=== PATIENT | female | born 1980 | race Caucasian/White ===

== ENCOUNTER 2018-03-13 13:22 | Outpatient (CLI) | payer OTHER ==
--- NOTE | 2018-03-13 15:59 | MRI ---
RIGHT ANKLE MRI WITHOUT IV CONTRAST: Date: 03/13/18 HISTORY: 37-year-old female with history of [id number] sprain of left ankle, slipped and fell several weeks ago with ankle pain. COMPARISON: Left ankle 3 views dated 01/03/18, left ankle MRI dated 07/05/17. FINDINGS: There is placement of plate and screws stabilizing the anterior talonavicular joint, as well as the l ateral calcaneal cuboid joint and the anterior subtalar joint. There is extensive artifact from the e xtensive metal hardware which certainly lowers the sensitivity of this study. There is a small focus of abnormal marrow signal involving the anterior lateral tibial metadiaphysis, having appearance cert ainly concerning for a small stress fracture with some minimal adjacent marrow edema. No overt talar dome osteochondral lesion. The Achilles tendon and plantar fascia are unremarkable. Medial and latera l ankle collateral ligament complexes appear intact, as do the flexor, extensor, and peroneus tendons . Sinus tarsi and spring ligament regions appear unremarkable, although spring ligament is considerab ly obscured. IMPRESSION: Postoperative fusion changes as above. Small focus of abnormal marrow signal involving the lateral as pect of the anterior tibia metadiaphysis. This is consistent with a small stress fracture with some m inimal adjacent abnormal marrow edema. No evidence for other significant acute process. POS: [facility]
== END 2018-03-13 13:23 | disposition home or self-care (01) ==
LOC: SCSMRI 13:22
PROVIDERS: ATTEND Family Medicine
DX: S93.402D Sprain of unspecified ligament of left ankle, subsequent encounter (principal)

== ENCOUNTER 2018-04-09 19:18 | Emergency (ER) | payer MEDICARE, OTHER ==
[2018-04-09] MEDS ORDERED: Morphine 4 MG/ML VIAL ONE ×2 (19:46→21:42)
[2018-04-09 19:47] LABS: #Eosinphils 0.1 thou/uL (0.0-0.7); #Lymphocytes 2.2 thou/uL (1.20-3.40); #Monocytes 0.3 thou/uL (0.11-0.59); #Neutrophils 3.5 thou/uL (1.40-6.50); %Basophils 0.2 % (0.0-1.0); %Eosinophils 0.9 % (0.0-10.0); %Monocytes 5.6 % (0.0-10.0); %Neutrophils 57.3 % (42.0-75.0); Hemoglobin 13.3 g/dL (12.0-16.0); Mean Corpuscular HGB CONC 31.8 g/dL (32.0-36.0); Mean Corpuscular Hemoglobin 24.3 pg (27.0-31.0); Mean Corpuscular Volume 76.6 fL (78.0-98.0); Mean Platelet Volume 9.5 fL (7.4-10.4); Platelet Count 300 thou/uL (130-400); RBC Distribution Width 15.1 % (11.5-14.5); Red Blood Cell (RBC) Count 5.49 mill/uL (4.20-5.40)
[2018-04-09] MEDS ORDERED: Promethazine HCl 25 MG/ML VIAL ONE (19:47)
[2018-04-09 19:50] LABS: BHCG - Serum Negative (NEGATIVE); Pregs Control Background? CLEAR/WHITE (CLR/WHITE); Pregs Control Bar Appear? YES (CONTROL BAR)
[2018-04-09 20:08] LABS: ALT (SGPT) 9 U/L (8-55); AST (SGOT) 11 U/L (5-34); Albumin 4.5 g/dL (3.5-5.0); Alkaline Phosphatase 135 U/L (40-150); Anion Gap 15 mmol/L (10-20); BUN (Urea Nitrogen) 5 mg/dL (7.0-18.7); Bilirubin, Total 0.4 mg/dL (0.2-1.2); Calc. Creatinine Clearance 0 mL/min (70-130); Calcium 9.8 mg/dL (7.8-10.44); Carbon Dioxide 21 mmol/L (22-29); Chloride 105 mmol/L (98-107); Estimated GFR-MDRD 68; Glucose 104 mg/dL (70-105); Lipase 34 U/L (8-78); Potassium 4.1 mmol/L (3.5-5.1); Protein, Total 8.5 g/dL (6.0-8.3); Sodium 137 mmol/L (136-145)
--- NOTE | 2018-04-09 20:24 | CT ---
CT ABDOMEN AND PELVIS WITHOUT CONTRAST: HISTORY: Sudden onset of abdominal pain that began yesterday. Today it has moved to the right lower quadrant of the abdomen. COMPARISON: 10/22/2016 TECHNIQUE: Multiple contiguous axial images were obtained in a CT of the abdomen and pelvis without contrast. C oronal reformats were performed. FINDINGS: The patient is status post cholecystectomy. The liver, kidneys, adrenal glands, spleen, and pancreas are unremarkable, although evaluation is limited without IV contrast. No free air, free fluid, or s tranding changes are seen in the abdomen or pelvis. The large and small bowel are unremarkable. The appendix is unremarkable. No abdominal or pelvic lymphadenopathy is seen. The reproductive organs are unremarkable. The patient has a left hip prosthesis. The visualized inferior thorax and abdominal wall soft tissue s are unremarkable. IMPRESSION: No evidence of acute intraabdominal/pelvic abnormality. POS: [facility]
[2018-04-09] MEDS ORDERED: Ketorolac Tromethamine 30 MG/ML VIAL ONE (21:10)
[2018-04-09 21:19] LABS: Bilirubin Negative (Negative); Blood, Urine Negative (Negative); Clarity CLOUDY (Clear); Glucose, Urine (Dipstick) Negative (Negative); Leukocyte Trace (Negative); Nitrite Negative (Negative); Protein, Urine (Dipstick) Negative (Neg-Trace); Specific Gravity, Urine 1.004 (1.002-1.036); Urobilinogen 0.2 mg/dL (0.2-1.0)
[2018-04-09 21:22] LABS: Bacteria/HPF None Seen HPF (None Seen); Hyaline Casts/LPF 7-10 HYALINE CAST LPF (0-3 Hyaline); Pathc Cast-AUWi Flag 1.01 (0-2.49)
--- NOTE | 2018-04-09 23:28 | ULT ---
PELVIC ULTRASOUND: HISTORY: Right lower quadrant abdominal/pelvic pain. Evaluate for ovarian torsion. COMPARISON: None. TECHNIQUE: Multiplanar chin-scale and color Doppler images were obtained in transabdominal and transvaginal pelv ic ultrasound. Spectral analysis of the Doppler waveforms of the ovaries was performed. FINDINGS: The uterus is normal in size and appearance without focal abnormality. The endometrial stripe is nor mal in thickness, measuring 4 mm. No free fluid is seen in the pelvis. Both ovaries are normal in size and appearance without focal le sions and demonstrate normal internal flow. IMPRESSION: Unremarkable pelvic ultrasound. POS: [facility]
--- NOTE | 2018-04-13 20:10 | EKG ---
Test Reason : Blood Pressure : / mmHG Vent. Rate : 123 BPM Atrial Rate : 123 BPM P-R Int : 000 ms QRS Dur : 068 ms QT Int : 412 ms P-R-T Axes : 078 108 074 degrees QTc Int : 589 ms Sinus tachycardia Rightward axis RSR' or QR pattern in V1 suggests right ventricular conduction delay Borderline ECG Confirmed by PINA PRETTY ([id number]), editor magazine OMAR MCGOWAN ([id number]) on 04/13/2018 8:10:05 PM Referred By: Confirmed By:PINA PRETTY
== END 2018-04-09 23:59 | disposition home or self-care (01) ==
LOC: ERS 19:18
DX: R10.31 Right lower quadrant pain (principal); R00.0 Tachycardia, unspecified; R11.2 Nausea with vomiting, unspecified; F43.10 Post-traumatic stress disorder, unspecified; F17.290 Nicotine dependence, other tobacco product, uncomplicated; Z79.899 Other long term (current) drug therapy
CPT/HCPCS: 36415; 74176; 76856; 80053; 81003; 81015; 83605; 83690; 84703; 85025; 87040; 87076; 87077; 87086; 87149; 93005; 94760; 96361; 96365; 96375; 96376; J1885; J2270; J2550

== ENCOUNTER 2018-04-17 14:08 | Emergency (ER) | payer OTHER ==
[2018-04-17 16:17] LABS: #Basophils 0.1 thou/uL (0.0-0.2); #Eosinphils 0.1 thou/uL (0.0-0.7); #Lymphocytes 1.4 thou/uL (1.20-3.40); #Monocytes 0.4 thou/uL (0.11-0.59); #Neutrophils 3.7 thou/uL (1.40-6.50); %Basophils 1.3 % (0.0-1.0); %Eosinophils 1.4 % (0.0-10.0); %Lymphocytes 24.9 % (21.0-51.0); %Monocytes 6.7 % (0.0-10.0); %Neutrophils 65.8 % (42.0-75.0); Hemoglobin 13.8 g/dL (12.0-16.0); Mean Corpuscular HGB CONC 32.1 g/dL (32.0-36.0); Mean Corpuscular Volume 77.7 fL (78.0-98.0); Mean Platelet Volume 9.5 fL (7.4-10.4); Platelet Count 193 thou/uL (130-400); RBC Distribution Width 14.9 % (11.5-14.5); Red Blood Cell (RBC) Count 5.53 mill/uL (4.20-5.40); White Blood Cell (WBC) Count 5.7 thou/uL (4.8-10.8)
[2018-04-17 16:21] LABS: Bilirubin Negative (Negative); Blood, Urine Negative (Negative); Clarity CLOUDY (Clear); Glucose, Urine (Dipstick) Negative (Negative); Leukocyte Moderate (Negative); Nitrite Negative (Negative); Protein, Urine (Dipstick) Negative (Neg-Trace); Specific Gravity, Urine 1.013 (1.002-1.036); Urobilinogen 0.2 mg/dL (0.2-1.0)
[2018-04-17 16:23] LABS: Bacteria/HPF None Seen HPF (None Seen); Hyaline Casts/LPF 4-6 HYALINE CAST LPF (0-3 Hyaline)
[2018-04-17 16:47] LABS: ALT (SGPT) 7 U/L (8-55); AST (SGOT) 11 U/L (5-34); Albumin 4.2 g/dL (3.5-5.0); Alkaline Phosphatase 119 U/L (40-150); Anion Gap 16 mmol/L (10-20); BUN (Urea Nitrogen) 11 mg/dL (7.0-18.7); Bilirubin, Total 0.3 mg/dL (0.2-1.2); Calc. Creatinine Clearance 0 mL/min (70-130); Calcium 9.6 mg/dL (7.8-10.44); Carbon Dioxide 15 mmol/L (22-29); Chloride 107 mmol/L (98-107); Estimated GFR-MDRD 78; Globulin 4.1 g/dL (2.4-3.5); Glucose 95 mg/dL (70-105); Lipase 38 U/L (8-78); Potassium 4.3 mmol/L (3.5-5.1); Protein, Total 8.3 g/dL (6.0-8.3); Sodium 134 mmol/L (136-145)
[2018-04-17] MEDS ORDERED: cefTRIAXone\\ROCEPHIN 1 GM VIAL ONE (17:17)
[2018-04-17] MEDS ORDERED: Lidocaine 1% PF 5 ML VIAL ONE (17:18)
== END 2018-04-17 17:55 | disposition home or self-care (01) ==
LOC: ERS 14:08
DX: N39.0 Urinary tract infection, site not specified (principal); R19.7 Diarrhea, unspecified; R11.2 Nausea with vomiting, unspecified; F41.9 Anxiety disorder, unspecified; F17.290 Nicotine dependence, other tobacco product, uncomplicated; Z79.899 Other long term (current) drug therapy
CPT/HCPCS: 36415; 80053; 81003; 81015; 83690; 85025; 87040; 87077; 87086; 96372; J0696; J2001

== ENCOUNTER 2018-06-15 09:54 | Emergency (ER) | payer MEDICARE ==
[2018-06-15] MEDS ORDERED: Levofloxacin 500 mg/D5W 100 ml Premix Bag ONE (10:38)
[2018-06-15] MEDS ORDERED: Famotidine/PF 20 mg/2ml Vial ONE (10:39)
[2018-06-15] MEDS ORDERED: Metoclopramide HCl 10 MG/2 ML VIAL ONE (10:39)
[2018-06-15] MEDS ORDERED: methylPREDNISolone Sod Succ/PF 125 MG/2 ML VIAL ONE (10:39)
[2018-06-15] MEDS ORDERED: diphenhydrAMINE 50 MG/ML VIAL ONE (10:39)
[2018-06-15] MEDS ORDERED: ISOVUE-370 76%-LOCM 1 ML ONE (10:42)
[2018-06-15 10:48] LABS: #Basophils 0.1 thou/uL (0.0-0.2); #Eosinphils 0.1 thou/uL (0.0-0.7); #Lymphocytes 1.7 thou/uL (1.20-3.40); #Monocytes 0.3 thou/uL (0.11-0.59); #Neutrophils 2.6 thou/uL (1.40-6.50); %Basophils 1.5 % (0.0-1.0); %Eosinophils 1.9 % (0.0-10.0); %Lymphocytes 35.5 % (21.0-51.0); %Monocytes 7.2 % (0.0-10.0); %Neutrophils 53.9 % (42.0-75.0); Hemoglobin 12.3 g/dL (12.0-16.0); Mean Corpuscular HGB CONC 31.8 g/dL (32.0-36.0); Mean Corpuscular Hemoglobin 25.1 pg (27.0-31.0); Mean Corpuscular Volume 79.1 fL (78.0-98.0); Mean Platelet Volume 9.2 fL (7.4-10.4); Platelet Count 190 thou/uL (130-400); RBC Distribution Width 14.6 % (11.5-14.5); Red Blood Cell (RBC) Count 4.91 mill/uL (4.20-5.40); White Blood Cell (WBC) Count 4.8 thou/uL (4.8-10.8)
[2018-06-15 11:11] LABS: ALT (SGPT) Less than 7 U/L (8-55); AST (SGOT) 11 U/L (5-34); Albumin 3.9 g/dL (3.5-5.0); Alkaline Phosphatase 126 U/L (40-150); Anion Gap 12 mmol/L (10-20); BUN (Urea Nitrogen) 9 mg/dL (7.0-18.7); Bilirubin, Total 0.2 mg/dL (0.2-1.2); CK (CPK) 35 U/L (29-168); Calc. Creatinine Clearance 0 mL/min (70-130); Calcium 9.3 mg/dL (7.8-10.44); Carbon Dioxide 22 mmol/L (22-29); Chloride 107 mmol/L (98-107); Estimated GFR-MDRD 81; Globulin 3.5 g/dL (2.4-3.5); Glucose 101 mg/dL (70-105); Lipase 35 U/L (8-78); Potassium 3.5 mmol/L (3.5-5.1); Protein, Total 7.4 g/dL (6.0-8.3); Sodium 137 mmol/L (136-145)
[2018-06-15] MEDS ORDERED: Morphine 4 MG/ML VIAL ONE (11:26)
[2018-06-15 11:47] LABS: BHCG - Serum Negative (NEGATIVE); Pregs Control Background? CLEAR/WHITE (CLR/WHITE); Pregs Control Bar Appear? YES (CONTROL BAR)
--- NOTE | 2018-06-15 12:01 | RAD ---
CHEST 1 VIEW: Date: 06/15/18 HISTORY: Chest pain. FINDINGS: Cardiac silhouette and pulmonary vasculature are unremarkable. Mediastinum is midline. No confluent a ir space consolidation or evidence of pneumothorax. IMPRESSION: No active cardiopulmonary abnormalities are demonstrated. POS: [facility]
--- NOTE | 2018-06-15 13:57 | CT ---
CT ARTERIOGRAM CHEST WITH IV CONTRAST AND 3D MIP IMAGING: HISTORY: Chest pain. FINDINGS: There is good contrast opacification of the pulmonary arteries and thoracic aorta with normal origin of the great vessels at the aortic arch. Nonenlarged, nonspecific lymph nodes throughout the mediasti num. No pleural fluid or pneumothorax. No lobar consolidation or mediastinal adenopathy. IMPRESSION: No CT evidence of pulmonary embolus. POS: [facility]
== END 2018-06-15 13:10 | disposition home or self-care (01) ==
LOC: ERS 09:54
DX: R07.89 Other chest pain (principal); M19.90 Unspecified osteoarthritis, unspecified site; F42.9 Obsessive-compulsive disorder, unspecified; F43.10 Post-traumatic stress disorder, unspecified; F17.210 Nicotine dependence, cigarettes, uncomplicated; Z86.711 Personal history of pulmonary embolism
CPT/HCPCS: 36415; 71045; 71275; 80053; 82550; 83690; 84484; 84703; 85025; 93005; 96365; 96366; 96375; J1200; J1956; J2270; J2765; J2930; Q9966; S0028

== ENCOUNTER 2018-10-20 10:50 | Emergency (ER) | payer MEDICARE ==
[2018-10-20] MEDS ORDERED: Morphine 4 MG/ML VIAL ONE ×2 (11:46→15:00)
[2018-10-20] MEDS ORDERED: diphenhydrAMINE 50 MG/ML VIAL ONE (11:46)
[2018-10-20 12:36] LABS: #Eosinphils 0.1 thou/uL (0.0-0.7); #Lymphocytes 1.2 thou/uL (1.20-3.40); #Monocytes 0.3 thou/uL (0.11-0.59); #Neutrophils 2.5 thou/uL (1.40-6.50); %Basophils 0.4 % (0.0-1.0); %Eosinophils 1.6 % (0.0-10.0); %Lymphocytes 28.9 % (21.0-51.0); %Monocytes 7.9 % (0.0-10.0); %Neutrophils 61.1 % (42.0-75.0); Mean Corpuscular HGB CONC 30.4 g/dL (32.0-36.0); Mean Corpuscular Volume 75.5 fL (78.0-98.0); Mean Platelet Volume 9.5 fL (7.4-10.4); Platelet Count 228 thou/uL (130-400); RBC Distribution Width 14.5 % (11.5-14.5); Red Blood Cell (RBC) Count 4.77 mill/uL (4.20-5.40)
[2018-10-20] MEDS ORDERED: Gadobenate Dimeglumine 529 MG/1 ML (20ML VIAL) ONE (12:43)
[2018-10-20 12:44] LABS: BHCG - Serum Negative (NEGATIVE); Pregs Control Background? CLEAR/WHITE (CLR/WHITE); Pregs Control Bar Appear? YES (CONTROL BAR)
[2018-10-20 12:53] LABS: ALT (SGPT) 7 U/L (8-55); AST (SGOT) 11 U/L (5-34); Albumin 4.1 g/dL (3.5-5.0); Alkaline Phosphatase 128 U/L (40-150); Anion Gap 13 mmol/L (10-20); BUN (Urea Nitrogen) 8 mg/dL (7.0-18.7); Bilirubin, Total 0.3 mg/dL (0.2-1.2); Calc. Creatinine Clearance 0 mL/min (70-130); Carbon Dioxide 22 mmol/L (22-29); Chloride 106 mmol/L (98-107); Estimated GFR-MDRD 81; Globulin 3.9 g/dL (2.4-3.5); Glucose 89 mg/dL (70-105); Potassium 3.8 mmol/L (3.5-5.1); Sodium 137 mmol/L (136-145)
[2018-10-20] MEDS ORDERED: Ketorolac Tromethamine 30 MG/ML VIAL ONE (17:34)
[2018-10-20] MEDS ORDERED: HYDROcodone/Acetaminophen 10/325 mg Tablet ONE (18:04)
[2018-10-20] MEDS ORDERED: predniSONE 20 MG TAB ONE (18:09)
--- NOTE | 2018-10-20 18:11 | MRI ---
MRI RIGHT UPPER EXTREMITY WITH AND WITHOUT CONTRAST: History: Pain. Comparison: None. FINDINGS: High grade cystic change of the proximal and distal carpal row, incompletely evaluated on this examin ation. Extensive panus formation of the wrist. Given that this is an MRI of the thumb and not the entire hand, the entirety of the hand/wrist was no t interrogated. There are large erosions and edema of the third and fourth metatarsal heads. Large er osions of the proximal and distal carpal rows. Severe tenosynovitis as well as longitudinal split tear of the flexor pollicis longus tendon. Mild te nosynovitis of the index finger flexor tendon. There is medial subluxation of the second, third, and fourth metacarpal phalangeal joints. Complete radiocarpal and intercarpal joint space height loss. IMPRESSION: 1. High grade tenosynovitis of the flexor pollicis longus with split tear at the level of the metacar pal phalangeal joint for a length of 3 cm. 2. Findings of markedly advanced rheumatoid arthritis. 3. Erosions of the second, third, and fourth metacarpal heads. 4. Moderate tenosynovitis of the second, index finger, flexor tendons. 5. Myositis of the adductor and abductor pollicis muscles without pyomyositis. 6. No osteomyelitis. POS: [facility]
== END 2018-10-20 19:12 | disposition left against medical advice (07) ==
LOC: ERS 10:50
DX: M65.9 Synovitis and tenosynovitis, unspecified (principal); M60.9 Myositis, unspecified; M79.641 Pain in right hand; Z86.711 Personal history of pulmonary embolism; F43.10 Post-traumatic stress disorder, unspecified; F41.9 Anxiety disorder, unspecified; Z79.899 Other long term (current) drug therapy
CPT/HCPCS: 80053; 84703; 85025; 85652; 86140; 94760; A9577; J1200; J1885; J2270; J7512

== ENCOUNTER 2018-10-21 12:22 | Inpatient (IN) | payer MEDICARE ==
[~2018-10-21 12:22] MED LIST: Dexamethasone 20 MG/5 ML VIAL ONE; Lidocaine 1% PF 5 ML VIAL ONE; PROPOFOL 200 MG/20 ML VIAL ONE
--- NOTE | 2018-10-21 14:19 | RAD ---
SINGLE VIEW CHEST: Date: 10/21/18 COMPARISON: 06/15/18. HISTORY: Thumb infection. Preoperative radiograph. FINDINGS: Single view of the chest shows a normal sized cardiomediastinal silhouette. There is no evidence of c onsolidation, mass, or pleural effusion. The bones are unremarkable. IMPRESSION: No evidence of acute cardiopulmonary disease. POS: [facility]
[2018-10-21] MEDS ORDERED: Morphine 4 MG/ML VIAL ONE (14:47)
[2018-10-21 14:58] LABS: #Lymphocytes 1.9 thou/uL (1.20-3.40); #Monocytes 0.4 thou/uL (0.11-0.59); #Neutrophils 4.1 thou/uL (1.40-6.50); %Basophils 0.5 % (0.0-1.0); %Eosinophils 0.3 % (0.0-10.0); %Lymphocytes 28.9 % (21.0-51.0); %Monocytes 6.7 % (0.0-10.0); %Neutrophils 63.6 % (42.0-75.0); Hemoglobin 10.4 g/dL (12.0-16.0); Mean Corpuscular HGB CONC 32.2 g/dL (32.0-36.0); Mean Corpuscular Hemoglobin 24.4 pg (27.0-31.0); Mean Corpuscular Volume 75.9 fL (78.0-98.0); Mean Platelet Volume 8.8 fL (7.4-10.4); Platelet Count 240 thou/uL (130-400); RBC Distribution Width 14.4 % (11.5-14.5); Red Blood Cell (RBC) Count 4.27 mill/uL (4.20-5.40); White Blood Cell (WBC) Count 6.5 thou/uL (4.8-10.8)
[2018-10-21 15:05] LABS: PTT 28.7 SEC (22.9-36.1); Prothrombin Time 13.6 SEC (12.0-14.7)
[2018-10-21] MEDS ORDERED: Lorazepam 2 MG/ML VIAL ONE (15:21)
[2018-10-21 15:29] LABS: ALT (SGPT) Less than 7 U/L (8-55); AST (SGOT) 7 U/L (5-34); Albumin 4.2 g/dL (3.5-5.0); Alkaline Phosphatase 122 U/L (40-150); Anion Gap 14 mmol/L (10-20); BUN (Urea Nitrogen) 11 mg/dL (7.0-18.7); Bilirubin, Total 0.2 mg/dL (0.2-1.2); Calc. Creatinine Clearance 0 mL/min (70-130); Calcium 9.3 mg/dL (7.8-10.44); Carbon Dioxide 21 mmol/L (22-29); Chloride 110 mmol/L (98-107); Estimated GFR-MDRD 82; Globulin 3.3 g/dL (2.4-3.5); Glucose 71 mg/dL (70-105); Potassium 3.5 mmol/L (3.5-5.1); Protein, Total 7.5 g/dL (6.0-8.3); Sodium 141 mmol/L (136-145)
[2018-10-21] MEDS ORDERED: Bisacodyl 10 MG SUPP PR PRN (18:57)
[2018-10-21] MEDS ORDERED: Acetaminophen 325 MG TAB PO PRN (18:57)
[2018-10-21] MEDS ORDERED: Promethazine HCl 25 MG/ML VIAL IM PRN ×2 (18:57→20:25)
[2018-10-21] MEDS ORDERED: traMADol HCl 50 MG TAB PO PRN (18:57)
[2018-10-21] MEDS ORDERED: Communication Order-Pharmacy FS SCH (19:00)
[2018-10-21] MEDS ORDERED: TETANUS AND DIPHTHERIA TOX/PF 0.5 ML DISP.SYRIN IM SCH (19:00)
[2018-10-21] MEDS ORDERED: Promethazine HCl 25 MG/ML VIAL SLOW IVP PRN (20:25)
[2018-10-21] MEDS ORDERED: Fentanyl 100 MCG/2 ML VIAL ONE ×3 (20:25→21:33)
[2018-10-21] MEDS ORDERED: Ondansetron HCl/PF 4 MG/2 ML Vial IVP PRN (20:25)
[2018-10-21] MEDS ORDERED: Promethazine HCl 25 MG/ML VIAL ONE (21:38)
[2018-10-21 22:14] VITALS: BMI 26.0
[2018-10-21] MEDS: Morphine 4 MG/ML VIAL SLOW IVP PRN (22:19)
[2018-10-21] MEDS: Cefepime 2 GM in Sodium Chloride 0.9% 100 ML IVPB SCH (22:23)
[2018-10-21] MEDS: Aspirin 81 mg Enteric Coated Tablet PO SCH (22:23)
[2018-10-21] MEDS: HYDROcodone/Acetaminophen 5/325 mg Tablet PO PRN (22:49)
[2018-10-22] MEDS: Morphine 4 MG/ML VIAL SLOW IVP PRN ×7 (00:01→23:44)
--- NOTE | 2018-10-22 02:43 | OP ---
DATE OF PROCEDURE: 10/21/2018 PREOPERATIVE DIAGNOSIS: Right flexor pollicis longus tendon infectious tenosynovitis, thumb and into carpal canal, not spread into the proximal carpal tunnel. PROCEDURES PERFORMED: 1. Flexor sheath drainage of abscess, right flexor pollicis longus tendon. 2. Flexor sheath radical tenosynovectomy, flexor pollicis longus tendon, finger and palm/wrist. 3. Right carpal tunnel release. SPECIMEN REMOVED: 1. Right flexor pollicis longus tenosynovium sample of tenosynovectomy with 1/2 going to culture, 1/2 going to specimen to rule out inflammatory versus infectious process. 2. Fluid from the tendon sheath, flexor pollicis longus. FINDINGS: Milky white thick flexor pollicis longus synovium and synovial fluid, especially in the carpal tunnel, in the proximal half of the flexor pollicis longus tendon up to mid thumb proximal phalanx. INDICATIONS FOR PROCEDURE: The patient lupus and rheumatoid arthritis in between treatment with combined Plaquenil and salicylic acid and then tried to seek Enbrel, which had been withheld due to insurance purpose by own history. The patient had Kanavel signs x3 with a history of MRI done yesterday showing a flexor sheath with increased fluid, possibly consistent with tenosynovitis versus other pathology. The patient did not respond to conservative treatment. DESCRIPTION OF PROCEDURE: After successful general LMA technique, the limb was prepped and draped. The patient had 10 mL of 0.5% Marcaine given divided equally between the proximal phalanx and the carpal tunnel incision. We exsanguinated the limb, inflated tourniquet to 250 mmHg pressure, made an oblique incision from the base of the palmar distal interphalangeal joint crease to just shot of the patient's oblique robin. We spared the oblique robin. We then was able to visualize a small amount of mucopurulent white fluid escape and this was irrigated. We then put the catheter inside here. We proceeded to perform a slightly left carpal tunnel incision, carried through the skin and subcutaneous tissue. Initially, there was no gross purulence, but once we dissected some of the tendons deep to the median nerve and the only tendon radial to the median nerve, which was flexor pollicis longus, we saw a milky white thick mucopurulent type fluid escaping to the carpal canal from the flexor pollicis longus sheath and this appeared to be grossly infected. We then irrigated the canal with 2 L of normal saline with bulb syringe pressure antibiotic inside, irrigated the sheath from both distal to proximal and proximal to distal for a total 100 on each side using a Pollack catheter. We released the tourniquet. We obtained hemostasis, we closed the thumb distal incision just enough to hold the catheter in place, placed bulky dressings on each wound that was open and the patient left the operating room without evidence of anesthetic or operative complication. Job ID: [id number]
--- NOTE | 2018-10-22 04:30 | HP ---
REASON FOR ADMISSION: Tenosynovitis of right hand tendons with history of lupus and rheumatoid arthritis. HISTORY OF PRESENTING ILLNESS: The patient gives history of having swelling of right thumb and palm of her hand. This happened 4 days back and has been progressively getting worse. She also developed a temperature 102.4 at home. She could not bend her thumb. She took multiple doses of Motrin, which did not really help. She also developed nausea, vomiting, and had come to emergency room on Sunday. She has had MRI done, which confirmed findings of tenosynovitis, but the patient thought she will get an appointment to see her primary care physician and deal with this. She could not get an appointment to see her doctor this morning from home and patient finally made it to the emergency room back here. She has seen Dr. Bui and was taken to the operating room. She was found to have had abscess with a flexor sheath in the right flexor pollicis longus tendon. She also had radical tenosynovectomy of flexor sheath of the flexor pollicis longus tendon, finger and palm/wrist, right carpal tunnel release. All of these were done by Dr. Bui last evening. PAST MEDICAL AND SURGICAL HISTORY: History of rheumatoid arthritis from the age of 15 years, history of lupus from the age of 17 years, history of PE, prior history of exploratory laparotomy for bleeding ovarian cyst, has had nearly 8 surgeries on the left knee and a surgery in the left ankle, left elbow, total hip replacement on the left, left foot fusion with patient unable to do eversion or inversion, cholecystectomy, tonsillectomy. CURRENT MEDICATIONS: The patient is on: 1. Ultram p.r.n. for pain. 2. Cymbalta 60 mg daily. 3. Seroquel 100 mg daily. ALLERGIES: AZITHROMYCIN, IODINE, SHELLFISH, AND ZOFRAN. PERSONAL HISTORY: The patient does vaping. Does not abuse alcohol or drugs. Lives with her boyfriend. FAMILY HISTORY: Father at the age of 71 years. He was in a coma for a year or so after a massive CVA. Mother is living and has Meniere's disease, had a brother who of massive NE at the age of 54 years. CODE STATUS: Full. REVIEW OF SYSTEMS: CONSTITUTIONAL: Negative for weight loss or gain, ability to conduct usual activities. SKIN: Negative for rash, itching. EYES: Negative for double vision, pain. ENT/MOUTH: Negative for nose bleeding, neck stiffness, pain, tenderness. CARDIOVASCULAR: Negative for palpitations, dyspnea on exertion, orthopnea. RESPIRATORY: Negative for shortness of breath, wheezing, cough, hemoptysis, fever or night sweats. GASTROINTESTINAL: Negative for poor appetite, abdominal pain, heartburn, nausea , vomiting, constipation, or diarrhea. GENITOURINARY: Negative for urgency, frequency, dysuria, nocturia. MUSCULOSKELETAL: Negative for pain, swelling. NEUROLOGIC/PSYCHIATRIC: Negative for anxiety, depression. ALLERGY/IMMUNOLOGIC: Negative for skin rash, bleeding tendency. PHYSICAL EXAMINATION: GENERAL: The patient is a 38-year-old female who is currently not in any acute distress. VITAL SIGNS: Blood pressure 128/82, pulse 96 per minute, respiratory rate 18 per minute, temperature 97.7 degrees Fahrenheit, saturating 98% on room air. NECK: Supple. No elevated JVD. HEENT: Eyes; extraocular muscles intact. Pupils reacting to light. Oral cavity, mucous membranes are moist. No exudates or congestion. CARDIOVASCULAR: S1-S2 heard, regular rhythm. RESPIRATORY: Air entry 1+ bilateral. No rales or rhonchi. ABDOMEN: Soft, bowel sounds heard. No tenderness, rigidity, or guarding. EXTREMITIES: The patient's right hand is in a dressing and has a small drain. There is no peripheral edema in the lower extremities. Peripheral pulses are 1+ bilateral. No ischemic ulcerations or gangrene. CENTRAL NERVOUS: No gross focal deficits noted. The patient is alert, awake, and oriented well. PSYCHIATRIC: The patient is currently tearful due to severe pain in the right hand. No hallucinations or delusions. LABORATORY DATA: White count of 6.5, H and H 10 and 32, platelet count 240, MCV is 75, with 63% neutrophils. PT/INR, PTT within normal limits. Serum bicarb 21, BUN 11, creatinine 0.7 serum glucose 71. AST and ALT within normal limits, alkaline phosphatase 122, albumin 4.2. IMAGING: Chest x-ray done shows no acute cardiopulmonary disease. CLINICAL IMPRESSION AND PLAN: The patient is being admitted to medical floor for right hand tenosynovitis. She has had surgery for the same as described above by Dr. Leandro Bui. He has placed her on cefepime. Wound cultures are pending at present. We will continue aspirin 81 mg twice daily for deep venous thrombosis prophylaxis until patient ambulates well. We will also continue her Cymbalta and Seroquel as before. She is on morphine p.r.n. for pain along with Ultram. We will continue to closely monitor her on medical floor. Please note I have seen and examined patient on 10/21/2018. Discharge plan will be per Dr. Bui's advice. Job ID: [id number] MTDD
[2018-10-22 06:54] LABS: #Lymphocytes 0.7 thou/uL (1.20-3.40); #Monocytes 0.2 thou/uL (0.11-0.59); #Neutrophils 3.6 thou/uL (1.40-6.50); %Basophils 0.2 % (0.0-1.0); %Eosinophils 0.2 % (0.0-10.0); %Lymphocytes 15.7 % (21.0-51.0); %Monocytes 4.5 % (0.0-10.0); %Neutrophils 79.4 % (42.0-75.0); Hemoglobin 9.6 g/dL (12.0-16.0); Mean Corpuscular HGB CONC 31.5 g/dL (32.0-36.0); Mean Corpuscular Volume 76.2 fL (78.0-98.0); Mean Platelet Volume 8.8 fL (7.4-10.4); Platelet Count 221 thou/uL (130-400); RBC Distribution Width 14.5 % (11.5-14.5); Red Blood Cell (RBC) Count 4.01 mill/uL (4.20-5.40); White Blood Cell (WBC) Count 4.5 thou/uL (4.8-10.8)
[2018-10-22] MEDS: Cefepime 2 GM in Sodium Chloride 0.9% 100 ML IVPB SCH ×2 (09:04→21:12)
[2018-10-22] MEDS: Aspirin 81 mg Enteric Coated Tablet PO SCH ×2 (09:04→20:13)
[2018-10-22] MEDS: DULoxetine 60 MG CAP PO SCH (09:04)
[2018-10-22] MEDS: HYDROcodone/Acetaminophen 5/325 mg Tablet PO PRN ×3 (10:35→21:14)
--- NOTE | 2018-10-22 16:07 | PDOC.PN ---
- Subjective Encounter Start Date: 10/22/18 Encounter Start Time: 16:06 Subjective: feels better but still pain in operated hand - Objective MAR Reviewed: Yes Vital Signs & Weight: Vital Signs (12 hours) Temp Pulse Resp BP Pulse Ox 10/22/18 12:55 97.9 F 96 18 112/77 100 10/22/18 08:49 97.9 F 70 18 108/72 97 10/22/18 08:00 97 10/22/18 04:40 97.7 F 94 20 96/63 94 L Weight Admit Weight 161 lb 8 oz Weight 161 lb 8 oz I&O: 10/21/18 10/22/18 10/23/18 06:59 06:59 06:59 Intake Total 430 Balance 430 Result Diagrams: 10/22/18 06:31 10/21/18 14:51 Additional Labs: Microbiology 10/21/18 19:39 Wrist Bacterial Culture - Preliminary 10/21/18 19:36 Misc: See comments Bacterial Culture - Preliminary Phys Exam - Physical Examination Constitutional: NAD HEENT: PERRLA, moist MMs, sclera anicteric, oral pharynx no lesions Neck: no nodes, no JVD, supple, full ROM Respiratory: no wheezing, no rales, no rhonchi, clear to auscultation bilateral Cardiovascular: RRR, no significant murmur Gastrointestinal: soft, non-tender, no distention, positive bowel sounds Musculoskeletal: no edema, pulses present Neurological: non-focal, normal sensation, moves all 4 limbs Psychiatric: normal affect, A&O x 3 Skin: no rash Dx/Plan (1) Tenosynovitis of finger Status: Acute (2) H/O rheumatoid arthritis Code(s): Z87.39 - PERSONAL HISTORY OF DISEASES OF THE MS SYS AND CONN TISS Status: Chronic (3) H/O systemic lupus erythematosus (SLE) Code(s): Z87.39 - PERSONAL HISTORY OF DISEASES OF THE MS SYS AND CONN TISS Status: Chronic - Plan plan discussed w/ family, continue antibiotics, respiratory therapy, incentive spirometry, DVT proph w/SCDs Add doxycycline cont cefepime -: local wound care. -: reconcile home meds * . Review of Systems - Review of Systems Constitutional: negative: fever, chills, sweats, weakness, malaise, other ENT: negative: Ear Pain, Ear Discharge, Nose Pain, Nose Discharge, Nose Congestion, Mouth Pain, Mouth Swelling, Throat Pain, Throat Swelling, Other Cardiovascular: negative: chest pain, palpitations, orthopnea, paroxysmal nocturnal dyspnea, edema, light headedness, other Gastrointestinal: negative: Nausea, Vomiting, Abdominal Pain, Diarrhea, Constipation, Melena, Hematochezia, Other Genitourinary: negative: Dysuria, Frequency, Incontinence, Hematuria, Retention , Other Musculoskeletal: Hand Pain. negative: Neck Pain, Shoulder Pain, Arm Pain, Back Pain, Leg Pain, Foot Pain, Other Neurological: negative: Weakness, Numbness, Incoordination, Change in Speech, Confusion, Seizures, Other - Medications/Allergies Allergies/Adverse Reactions: Allergies Allergy/AdvReac Type Severity Reaction Status Date / Time azithromycin Allergy Severe Anaphylaxis Verified 10/21/18 22:43 shellfish derived Allergy Severe Anaphylaxis Verified 10/21/18 22:43 ondansetron Allergy Intermediate Hives Verified 10/21/18 22:43 [From Zofran (as hydrochloride)] Iodinated Contrast- Oral and Allergy Mild Hives Verified 10/21/18 22:43 IV Dye [Iodinated Contrast Media - Oral and] Medications: Current Medications Acetaminophen (Tylenol) 650 mg PO Q6H PRN PRN Reason: Headache/Temp >101F/Mild Pain Hydrocodone Bitart/Acetaminophen ([place] 5/325) 1 tab PO Q4H PRN PRN Reason: Moderate Pain (4-6) Last Admin: 10/22/18 10:35 Dose: 1 tab Aspirin (Ecotrin) 81 mg PO BID [facility] Last Admin: 10/22/18 09:04 Dose: 81 mg Bisacodyl (Dulcolax) 10 mg [place] DAILYPRN PRN PRN Reason: Constipation Duloxetine HCl (Cymbalta) 60 mg PO DAILY [facility] Last Admin: 10/22/18 09:04 Dose: 60 mg Cefepime HCl 2 gm/ Sodium (Chloride) 100 mls @ 200 mls/hr IVPB Q12HR [facility] Stop: 10/24/18 09:29 Last Admin: 10/22/18 09:04 Dose: 100 mls Doxycycline Hyclate 100 mg/ (Sodium Chloride) 100 mls @ 100 mls/hr IVPB Q12HR [facility] Miscellaneous Information (Communication Order-Pharmacy) 1 each [facility] Stop: 10/22/18 19:01 Miscellaneous Medication (Pharmacy To Dose) 1 each IVPB PRN PRN PRN Reason: Pharmacy to dose Morphine Sulfate (Morphine) 4 mg SLOW IVP Q2H PRN PRN Reason: Severe Pain (7-10) Last Admin: 10/22/18 12:21 Dose: 4 mg Promethazine HCl (Phenergan) 12.5 mg IM Q4H PRN PRN Reason: Nausea Quetiapine Fumarate (Seroquel) 100 mg PO HS [facility] Sodium Chloride (Flush - Normal Saline) 10 ml IVF PRN PRN PRN Reason: Saline Flush Tramadol HCl (Ultram) 50 mg PO Q6H PRN PRN Reason: Mild Pain (1-3)
[2018-10-22] MEDS: sulfaSALAzine 500 MG TAB PO SCH (17:26)
[2018-10-22] MEDS: busPIRone HCl 5 MG TAB PO SCH (20:10)
[2018-10-22] MEDS: Benztropine 1 MG TAB PO SCH (20:10)
[2018-10-22] MEDS: OXcarbazepine 300 MG TAB PO SCH (20:11)
[2018-10-22] MEDS: Gabapentin 300 MG CAP PO SCH (20:11)
[2018-10-22] MEDS: traZODone HCl 150 MG TAB PO SCH (20:12)
[2018-10-23] MEDS: Morphine 4 MG/ML VIAL SLOW IVP PRN ×6 (03:30→23:40)
[2018-10-23] MEDS: HYDROcodone/Acetaminophen 5/325 mg Tablet PO PRN ×3 (05:30→21:22)
[2018-10-23] MEDS: Cefepime 2 GM in Sodium Chloride 0.9% 100 ML IVPB SCH ×2 (08:18→19:40)
[2018-10-23] MEDS: busPIRone HCl 5 MG TAB PO SCH ×2 (08:19→19:49)
[2018-10-23] MEDS: sulfaSALAzine 500 MG TAB PO SCH (08:19)
[2018-10-23] MEDS: Aspirin 81 mg Enteric Coated Tablet PO SCH ×2 (08:19→19:40)
[2018-10-23] MEDS: OXcarbazepine 300 MG TAB PO SCH ×2 (08:19→19:49)
[2018-10-23] MEDS: Gabapentin 300 MG CAP PO SCH ×4 (08:20→21:28)
[2018-10-23] MEDS: DULoxetine 60 MG CAP PO SCH (08:21)
[2018-10-23] MEDS: Benztropine 1 MG TAB PO SCH ×2 (08:21→19:47)
[2018-10-23] MEDS: OLANZapine 5 MG TAB PO SCH (08:57)
--- NOTE | 2018-10-23 14:24 | PDOC.PN ---
- Subjective Encounter Start Date: 10/23/18 Encounter Start Time: 14:22 Subjective: feels much better.still pain at operated thumb but tolerable -: no fever/;chills - Objective MAR Reviewed: Yes Vital Signs & Weight: Vital Signs (12 hours) Temp Pulse Resp BP Pulse Ox 10/23/18 08:09 97.8 F 92 20 117/72 99 Weight Admit Weight 161 lb 8 oz Weight 161 lb 8 oz I&O: 10/22/18 10/23/18 10/24/18 06:59 06:59 06:59 Intake Total 430 1666 Balance 430 1666 Result Diagrams: 10/22/18 06:31 10/21/18 14:51 Additional Labs: Microbiology 10/21/18 19:39 Wrist Bacterial Culture - Preliminary 10/21/18 19:36 Misc: See comments Bacterial Culture - Preliminary Phys Exam - Physical Examination Constitutional: NAD HEENT: PERRLA, moist MMs, sclera anicteric, oral pharynx no lesions Neck: no nodes, no JVD, supple, full ROM Respiratory: no wheezing, no rales, no rhonchi, clear to auscultation bilateral Cardiovascular: RRR, no significant murmur, no rub Gastrointestinal: soft, non-tender, no distention, positive bowel sounds Musculoskeletal: no edema, pulses present R hand banadged w drain in place Neurological: non-focal, normal sensation, moves all 4 limbs Lymphatic: no nodes Psychiatric: normal affect, A&O x 3 Skin: no rash Dx/Plan (1) Tenosynovitis of finger Status: Acute Comment: s/p I&D.cont empiric ABx. on Doxy and Cefepime (2) H/O rheumatoid arthritis Code(s): Z87.39 - PERSONAL HISTORY OF DISEASES OF THE MS SYS AND CONN TISS Status: Chronic (3) H/O systemic lupus erythematosus (SLE) Code(s): Z87.39 - PERSONAL HISTORY OF DISEASES OF THE MS SYS AND CONN TISS Status: Chronic Comment: not on any meds for now.follow sw Dr. Freeman at [facility] - Plan DVT proph w/SCDs reports H/O pancreatitis w sulfasalazine +plaquenil-will stop -: cont ABx -: wound car eper Hand Sx.Dc when cleared on PO ABx -: CX negative so far.clinically stable -: am labs * . Review of Systems - Review of Systems Constitutional: negative: fever, chills, sweats, weakness, malaise, other Respiratory: negative: Cough, Dry, Shortness of Breath, Hemoptysis, SOB with Excertion, Pleuritic Pain, Sputum, Wheezing Cardiovascular: negative: chest pain, palpitations, orthopnea, paroxysmal nocturnal dyspnea, edema, light headedness, other Gastrointestinal: negative: Nausea, Vomiting, Abdominal Pain, Diarrhea, Constipation, Melena, Hematochezia, Other Genitourinary: negative: Dysuria, Frequency, Incontinence, Hematuria, Retention , Other Musculoskeletal: Hand Pain. negative: Neck Pain, Shoulder Pain, Arm Pain, Back Pain, Leg Pain, Foot Pain, Other Neurological: negative: Weakness, Numbness, Incoordination, Change in Speech, Confusion, Seizures, Other - Medications/Allergies Allergies/Adverse Reactions: Allergies Allergy/AdvReac Type Severity Reaction Status Date / Time azithromycin Allergy Severe Anaphylaxis Verified 10/21/18 22:43 shellfish derived Allergy Severe Anaphylaxis Verified 10/21/18 22:43 ondansetron Allergy Intermediate Hives Verified 10/21/18 22:43 [From Zofran (as hydrochloride)] Iodinated Contrast- Oral and Allergy Mild Hives Verified 10/21/18 22:43 IV Dye [Iodinated Contrast Media - Oral and] Medications: Current Medications Acetaminophen (Tylenol) 650 mg PO Q6H PRN PRN Reason: Headache/Temp >101F/Mild Pain Hydrocodone Bitart/Acetaminophen ([place] 5/325) 1 tab PO Q4H PRN PRN Reason: Moderate Pain (4-6) Last Admin: 10/23/18 05:30 Dose: 1 tab Aspirin (Ecotrin) 81 mg PO BID [facility] Last Admin: 10/23/18 08:19 Dose: 81 mg Benztropine Mesylate (Cogentin) 1 mg PO BID [facility] Last Admin: 10/23/18 08:21 Dose: Not Given Bisacodyl (Dulcolax) 10 mg [place] DAILYPRN PRN PRN Reason: Constipation Buspirone HCl (Buspar) 7.5 mg PO BID [facility] Last Admin: 10/23/18 08:19 Dose: Not Given Duloxetine HCl (Cymbalta) 60 mg PO DAILY [facility] Last Admin: 10/23/18 08:21 Dose: 60 mg Gabapentin (Neurontin) 600 mg PO TID [facility] Last Admin: 10/23/18 08:20 Dose: Not Given Cefepime HCl 2 gm/ Sodium (Chloride) 100 mls @ 200 mls/hr IVPB Q12HR [facility] Stop: 10/24/18 09:29 Last Admin: 10/23/18 08:18 Dose: 100 mls Doxycycline Hyclate 100 mg/ (Sodium Chloride) 100 mls @ 100 mls/hr IVPB 1200, 2359 [facility] Last Admin: 10/23/18 12:00 Dose: 100 mls Miscellaneous Medication (Pharmacy To Dose) 1 each IVPB PRN PRN PRN Reason: Pharmacy to dose Morphine Sulfate (Morphine) 4 mg SLOW IVP Q2H PRN PRN Reason: Severe Pain (7-10) Last Admin: 10/23/18 12:12 Dose: 4 mg Olanzapine (Zyprexa) 5 mg PO DAILY [facility] Last Admin: 10/23/18 08:57 Dose: Not Given Oxcarbazepine (Trileptal) 300 mg PO BID [facility] Last Admin: 10/23/18 08:19 Dose: Not Given Promethazine HCl (Phenergan) 12.5 mg IM Q4H PRN PRN Reason: Nausea Quetiapine Fumarate (Seroquel) 100 mg PO HS [facility] Last Admin: 10/22/18 20:12 Dose: Not Given Sertraline HCl (Zoloft) 100 mg PO HS [facility] Last Admin: 10/22/18 20:12 Dose: Not Given Sodium Chloride (Flush - Normal Saline) 10 ml IVF PRN PRN PRN Reason: Saline Flush Tramadol HCl (Ultram) 50 mg PO Q6H PRN PRN Reason: Mild Pain (1-3) Trazodone HCl (Desyrel) 150 mg PO HS [facility] Last Admin: 10/22/18 20:12 Dose: Not Given
[2018-10-23] MEDS: traZODone HCl 150 MG TAB PO SCH (19:50)
[2018-10-24] MEDS: Morphine 4 MG/ML VIAL SLOW IVP PRN ×4 (06:11→18:37)
[2018-10-24 06:41] LABS: Anion Gap 10 mmol/L (10-20); BUN (Urea Nitrogen) 9 mg/dL (7.0-18.7); Calc. Creatinine Clearance 132 mL/min (70-130); Calcium 8.2 mg/dL (7.8-10.44); Carbon Dioxide 22 mmol/L (22-29); Chloride 110 mmol/L (98-107); Estimated GFR-MDRD Greater than 90; Glucose 77 mg/dL (70-105); Potassium 3.9 mmol/L (3.5-5.1); Sodium 138 mmol/L (136-145)
[2018-10-24 06:52] LABS: Hemoglobin 9.8 g/dL (12.0-16.0); Mean Corpuscular HGB CONC 31.6 g/dL (32.0-36.0); Mean Corpuscular Hemoglobin 24.3 pg (27.0-31.0); Mean Corpuscular Volume 76.9 fL (78.0-98.0); Mean Platelet Volume 8.7 fL (7.4-10.4); Platelet Count 206 thou/uL (130-400); RBC Distribution Width 14.4 % (11.5-14.5); Red Blood Cell (RBC) Count 4.05 mill/uL (4.20-5.40); White Blood Cell (WBC) Count 3.7 thou/uL (4.8-10.8)
[2018-10-24 07:40] VITALS: BP 107/71; TEMP 98.3
[2018-10-24 09:20] LABS: Hypochromia SLIGHT = 6-15 cells (100X) (0-5/hpf); Lymphocytes 66 % (21-51); MDiff Complete? YES; Microcytosis SLIGHT = 6-15 cells (100X) (0-5/hpf); Monocytes 1 % (0-10); Neutrophil 33 % (42-75); Polychromasia SLIGHT = 2-3 cells (100X) (0-2/hpf)
[2018-10-24] MEDS: OXcarbazepine 300 MG TAB PO SCH (09:24)
[2018-10-24] MEDS: Gabapentin 300 MG CAP PO SCH ×2 (09:24→15:39)
[2018-10-24] MEDS: DULoxetine 60 MG CAP PO SCH (09:24)
[2018-10-24] MEDS: Cefepime 2 GM in Sodium Chloride 0.9% 100 ML IVPB SCH (09:24)
[2018-10-24] MEDS: Aspirin 81 mg Enteric Coated Tablet PO SCH (09:24)
[2018-10-24] MEDS: OLANZapine 5 MG TAB PO SCH (09:24)
[2018-10-24] MEDS: busPIRone HCl 5 MG TAB PO SCH (09:25)
[2018-10-24] MEDS: Benztropine 1 MG TAB PO SCH (09:25)
[2018-10-24] MEDS ORDERED: Amoxicillin/Potassium Clav 875 MG TAB PO SCH ×2 (12:15→21:00)
[2018-10-24] MEDS ORDERED: IRON SUCROSE COMPLEX 100 MG/5 ML SLOW IVP SCH (12:15)
[2018-10-24] MEDS ORDERED: Iron, Sodium Ferric Gluconate 250 MG in Sodium Chloride 0.9% 100 ML IVPB SCH (14:30)
--- NOTE | 2018-10-24 17:06 | PDOC.PN ---
- Subjective Encounter Start Date: 10/24/18 Encounter Start Time: 17:04 Subjective: feels better but has some pain in left hand at base of thumb -: no redness/swelling/has chronic hand contarcture from RA - Objective MAR Reviewed: Yes Vital Signs & Weight: Vital Signs (12 hours) Temp Pulse Resp BP Pulse Ox 10/24/18 09:25 97 10/24/18 07:39 98.3 F 67 16 107/71 97 Weight Admit Weight 161 lb 8 oz Weight 161 lb 8 oz I&O: 10/23/18 10/24/18 10/25/18 06:59 06:59 06:59 Intake Total 1666 1747 Balance 1666 1747 Result Diagrams: 10/24/18 05:58 10/24/18 05:58 Additional Labs: Microbiology 10/21/18 19:39 Wrist Bacterial Culture - Preliminary 10/21/18 19:39 Wrist Anaerobic Culture - Preliminary NO ANAEROBES ISOLATED IN 48 HOURS 10/21/18 19:36 Misc: See comments Bacterial Culture - Preliminary 10/21/18 19:36 Misc: See comments Anaerobic Culture - Preliminary NO ANAEROBES ISOLATED IN 48 HOURS Phys Exam - Physical Examination Constitutional: NAD HEENT: PERRLA, moist MMs, sclera anicteric, oral pharynx no lesions Neck: no nodes, no JVD, supple, full ROM Respiratory: no wheezing, no rales, no rhonchi, clear to auscultation bilateral Cardiovascular: RRR, no significant murmur, no rub Gastrointestinal: soft, non-tender, no distention, positive bowel sounds Musculoskeletal: no edema, pulses present no erythema/warmth on Left hand.mild TTP.R hand drain removed Neurological: non-focal, normal sensation, moves all 4 limbs Dx/Plan (1) Tenosynovitis of finger Status: Acute Comment: s/p I&D.cont empiric ABx. on Doxy .Cefepime stopped by Hand Sx. will add Augmention for Anaerobe & GN coverage (2) H/O rheumatoid arthritis Code(s): Z87.39 - PERSONAL HISTORY OF DISEASES OF THE MS SYS AND CONN TISS Status: Chronic (3) H/O systemic lupus erythematosus (SLE) Code(s): Z87.39 - PERSONAL HISTORY OF DISEASES OF THE MS SYS AND CONN TISS Status: Chronic Comment: not on any meds for now.follow sw Dr. Freeman at [facility] (4) Microcytic hypochromic anemia Code(s): D50.9 - IRON DEFICIENCY ANEMIA, UNSPECIFIED Status: Chronic Comment : suspect HOPE Vs combination of ACD with RA and SLE - Plan DVT proph w/SCDs DC when OK w Hand Sx.HD stable -: Will need OP f/u -: monitor Left hand -currently no evidence of infection.? active RA pain -: transfuse IV iron today * . Review of Systems - Review of Systems Constitutional: negative: fever, chills, sweats, weakness, malaise, other Respiratory: negative: Cough, Dry, Shortness of Breath, Hemoptysis, SOB with Excertion, Pleuritic Pain, Sputum, Wheezing Cardiovascular: negative: chest pain, palpitations, orthopnea, paroxysmal nocturnal dyspnea, edema, light headedness, other Gastrointestinal: negative: Nausea, Vomiting, Abdominal Pain, Diarrhea, Constipation, Melena, Hematochezia, Other Genitourinary: negative: Dysuria, Frequency, Incontinence, Hematuria, Retention , Other Musculoskeletal: Hand Pain - Medications/Allergies Allergies/Adverse Reactions: Allergies Allergy/AdvReac Type Severity Reaction Status Date / Time azithromycin Allergy Severe Anaphylaxis Verified 10/21/18 22:43 shellfish derived Allergy Severe Anaphylaxis Verified 10/21/18 22:43 ondansetron Allergy Intermediate Hives Verified 10/21/18 22:43 [From Zofran (as hydrochloride)] Iodinated Contrast- Oral and Allergy Mild Hives Verified 10/21/18 22:43 IV Dye [Iodinated Contrast Media - Oral and] Medications: Current Medications Acetaminophen (Tylenol) 650 mg PO Q6H PRN PRN Reason: Headache/Temp >101F/Mild Pain Hydrocodone Bitart/Acetaminophen (Novice 5/325) 1 tab PO Q4H PRN PRN Reason: Moderate Pain (4-6) Last Admin: 10/23/18 21:22 Dose: 1 tab Amoxicillin/Clavulanate Potassium (Augmentin) 875 mg PO Q12HR [facility] Aspirin (Ecotrin) 81 mg PO BID [facility] Last Admin: 10/24/18 09:24 Dose: 81 mg Benztropine Mesylate (Cogentin) 1 mg PO BID [facility] Last Admin: 10/24/18 09:25 Dose: Not Given Bisacodyl (Dulcolax) 10 mg [place] DAILYPRN PRN PRN Reason: Constipation Buspirone HCl (Buspar) 7.5 mg PO BID [facility] Last Admin: 10/24/18 09:25 Dose: Not Given Duloxetine HCl (Cymbalta) 60 mg PO DAILY [facility] Last Admin: 10/24/18 09:24 Dose: 60 mg Gabapentin (Neurontin) 600 mg PO TID [facility] Last Admin: 10/24/18 15:39 Dose: 600 mg Doxycycline Hyclate 100 mg/ (Sodium Chloride) 100 mls @ 100 mls/hr IVPB 1200, 2359 [facility] Last Admin: 10/24/18 13:06 Dose: 100 mls Miscellaneous Medication (Pharmacy To Dose) 1 each IVPB PRN PRN PRN Reason: Pharmacy to dose Morphine Sulfate (Morphine) 4 mg SLOW IVP Q2H PRN PRN Reason: Severe Pain (7-10) Last Admin: 10/24/18 15:38 Dose: 4 mg Olanzapine (Zyprexa) 5 mg PO DAILY [facility] Last Admin: 10/24/18 09:24 Dose: 5 mg Oxcarbazepine (Trileptal) 300 mg PO BID [facility] Last Admin: 10/24/18 09:24 Dose: 300 mg Promethazine HCl (Phenergan) 12.5 mg IM Q4H PRN PRN Reason: Nausea Quetiapine Fumarate (Seroquel) 100 mg PO HS [facility] Last Admin: 10/23/18 19:49 Dose: Not Given Sertraline HCl (Zoloft) 100 mg PO HS [facility] Last Admin: 10/23/18 19:49 Dose: Not Given Sodium Chloride (Flush - Normal Saline) 10 ml IVF PRN PRN PRN Reason: Saline Flush Tramadol HCl (Ultram) 50 mg PO Q6H PRN PRN Reason: Mild Pain (1-3) Trazodone HCl (Desyrel) 150 mg PO HS [facility] Last Admin: 10/23/18 19:50 Dose: Not Given
[2018-10-24] MEDS: HYDROcodone/Acetaminophen 5/325 mg Tablet PO PRN (19:50)
--- NOTE | 2018-10-25 13:01 | DIS ---
DATE OF ADMISSION: 10/21/2018 DATE OF DISCHARGE: 10/24/2018 CONDITION: At the time of discharge, stable and improved. DISCHARGE DISPOSITION: Home. PRIMARY CARE PHYSICIAN: Gaurav Verdugo. DISCHARGE DIAGNOSES: 1. Right flexor pollicis longus tendon infectious tenosynovitis, thumb and into carpal tunnel, status post I and D by Dr. Bui. 2. History of rheumatoid arthritis. 3. History of systemic lupus erythematosus. 4. Microcytic hypochromic anemia. DISCHARGE MEDICATIONS: 1. Clindamycin, as prescribed by Dr. Bui, 300 mg every 8 hours. 2. Tramadol p.r.n. Resume home medications as follows; 1. Zoloft 100 mg daily. 2. Trileptal 300 mg daily. 3. Zyprexa 5 mg daily. 4. Neurontin 600 mg p.o. b.i.d. 5. Cogentin 1 mg p.o. b.i.d. 6. Trazodone 150 mg at bedtime. 7. BuSpar 7.5 mg p.o. b.i.d. Please note that the patient is not on sulfasalazine anymore. All of these medications are not reconciled. IN-HOUSE CONSULTATION: Dr. Leandro Bui, Hand Surgery. PROCEDURES DONE IN-HOUSE: Flexor sheath drainage of abscess of the right flexor pollicis longus tendon and radical tenosynovectomy as well as right carpal tunnel release. HISTORY OF PRESENT ILLNESS: Ms. Avila is a pleasant 38-year-old female with past medical history extensive for rheumatoid arthritis from the age of 15 and SLE from the age of 17, history of PE, history of 8 surgeries on the knee and left ankle and elbow and hip replacement on the left, who presented to the emergency room with 4-day complaint of right thumb pain, swelling and pain in the palm of her right hand. She was having fever of 102.4 at home, associated with nausea and vomiting. She had an MRI done in the ER, which showed high-grade tenosynovitis of the flexor pollicis longus with split tear at the level of the metacarpophalangeal joint for a length of 3 cm. She was also found to have markedly advanced finding of rheumatoid arthritis, erosion of the 2nd, 3rd, and 4th metacarpal heads, moderate tenosynovitis of the 2nd index finger flexor tendons and myositis of the adductor and abductor pollicis muscle without polymyositis or osteomyelitis. She was started on empiric antibiotics and Hand Surgery was consulted. Please see admission history and physical dictated by Dr. Madison on 10/22/2018. HOSPITAL COURSE: The patient underwent successful I and D by Dr. Bui on 10/21/2018. Her cultures were obtained and biopsies were obtained as well. Biopsy showed benign tissue without malignancy or inflammation. Her microbiology cultures of the hand remained negative. She remained otherwise hemodynamically stable. Wound care was provided as per Dr. Bui's instruction and earlier this morning, she was discharged by Dr. Bui. She was treated with IV and then oral antibiotics in the hospital and discharge antibiotics were provided by Dr. Bui himself. I have seen and examined this patient prior to discharge in the morning today. Please see hospitalist progress note from the date of discharge for full details including [id number] interaction. Job ID: [id number]
--- NOTE | 2018-10-26 13:14 | EKG ---
Test Reason : SURGERY Blood Pressure : / mmHG Vent. Rate : 089 BPM Atrial Rate : 089 BPM P-R Int : 184 ms QRS Dur : 090 ms QT Int : 398 ms P-R-T Axes : 065 064 051 degrees QTc Int : 484 ms Normal sinus rhythm with sinus arrhythmia Prolonged QT Abnormal ECG Confirmed by ANTONIO ANGELES, JANNA ([id number]), photography editor PAMELA VARGAS ([id number]) on 10/26/2018 1:14:09 PM Referred By: Confirmed By:AJNNA ALVAREZ MD
== END 2018-10-24 20:00 | disposition home or self-care (01) | DRG 514 ==
LOC: ERS 12:22 → ERHOLD 15:22 → T4-B 16:47
PROVIDERS: ADMIT Internal Medicine; ATTEND Internal Medicine
PROC: 0L970ZZ Drainage of Right Hand Tendon, Open Approach (ICD-10-PCS; principal; 2018-10-21)
PROC: 0LT70ZZ Resection of Right Hand Tendon, Open Approach (ICD-10-PCS; 2018-10-21)
PROC: 01N50ZZ Release Median Nerve, Open Approach (ICD-10-PCS; 2018-10-21)
DX: M65.141 Other infective (teno)synovitis, right hand (principal); M06.9 Rheumatoid arthritis, unspecified; F43.10 Post-traumatic stress disorder, unspecified; F42.9 Obsessive-compulsive disorder, unspecified; D50.9 Iron deficiency anemia, unspecified; Z96.642 Presence of left artificial hip joint; Z90.49 Acquired absence of other specified parts of digestive tract; Z90.89 Acquired absence of other organs; Z86.711 Personal history of pulmonary embolism; Z88.1 Allergy status to other antibiotic agents; Z88.8 Allergy status to other drugs, medicaments and biological substances; Z91.013 Allergy to seafood; Z87.39 Personal history of other diseases of the musculoskeletal system and connective tissue
CPT/HCPCS: 36415; 71045; 80048; 80053; 84703; 85025; 85610; 85652; 85730; 86140; 87070; 87205; 88304; 93005; 94760; 96361; 96374; 96375; 96376; A9577; C1758; J0692; J1100; J1200; J1885; J2001; J2060; J2270; J2550; J2704; J2916; J3010; J3490; J7512

== ENCOUNTER 2018-10-28 13:47 | Day surgery (SDC) | payer MEDICARE ==
[2018-10-28] MEDS ORDERED: Lidocaine 1% PF 5 ML VIAL ONE (15:26)
[2018-10-28] MEDS ORDERED: Metoclopramide HCl 10 MG/2 ML VIAL ONE (15:26)
[2018-10-28] MEDS ORDERED: Ketorolac Tromethamine 30 MG/ML VIAL ONE ×2 (15:26→20:02)
[2018-10-28] MEDS ORDERED: PROPOFOL 200 MG/20 ML VIAL ONE (15:26)
[2018-10-28] MEDS ORDERED: Fentanyl 100 MCG/2 ML VIAL ONE ×2 (18:32→19:55)
[2018-10-28] MEDS ORDERED: Bupivacaine PF 0.5% 30 ML VIAL ONE (18:40)
[2018-10-28] MEDS ORDERED: Thrombin 5000 UNITS/5 ML VIAL ONE (18:41)
[2018-10-28] MEDS ORDERED: Sodium Chloride 0.9% 10 ML ONE (18:41)
[2018-10-28] MEDS ORDERED: Bacitracin Zinc Ointment 30 gm TUBE ONE (18:41)
[2018-10-28] MEDS ORDERED: Midazolam HCl 2 mg/2 ml Vial ONE (18:57)
[2018-10-28] MEDS ORDERED: Famotidine/PF 20 mg/2ml Vial ONE (19:29)
[2018-10-28] MEDS ORDERED: HYDROcodone/Acetaminophen 5/325 mg Tablet ONE (20:50)
--- NOTE | 2018-10-28 23:11 | OP ---
DATE OF PROCEDURE: 10/28/2018 PREOPERATIVE DIAGNOSES: 1. Right palmar wound, 5.5 cm. 2. Right thumb wound, 2.5 cm, total length of 8 cm wound closure. PROCEDURES PERFORMED: 1. Debridement of wounds, multiple, hand, total length of 8 cm. 2. Closure of wound, hand, total length of 8 cm. FINDINGS: No gross infection. DESCRIPTION OF PROCEDURE: After successful general LMA technique, the limb was prepped and draped. The patient then had the upper extremity prepped and draped. The time-out was done appropriately and then the limb was exsanguinated, tourniquet was inflated to 250 mmHg pressure. The tourniquet would be inflated for 7 minutes total. The patient then had the wounds opened, inspected, we debrided some denuded fat using a combination of tenotomy scissors, Adson's, and curette. We did not find gross infection dermis, epidermis at the finger wound, dermis and epidermis and subcutaneous fat as well as visualized tendon sheath at the palm hand wound. There was excisional technique utilized. We then irrigated each wound, with a total of 250 mL at the finger wound and 750 mL at the palm wound. Tourniquet was deflated and hemostasis was obtained. We closed the palmar wound with interrupted 3-0 nylon in simple pattern and the finger wound with interrupted 4-0 nylon in simple pattern. The patient left the operating room without evidence of anesthetic operative complication with a small dressing. Job ID: [id number]
== END 2018-10-28 21:34 | disposition home or self-care (01) ==
LOC: SDC 13:47
PROVIDERS: ATTEND Orthopaedic Surgery Hand Surgery
PROC: 0LB70ZZ Excision of Right Hand Tendon, Open Approach (ICD-10-PCS; principal; 2018-10-28)
DX: S61.401D Unspecified open wound of right hand, subsequent encounter (principal); S61.001D Unspecified open wound of right thumb without damage to nail, subsequent encounter; M32.9 Systemic lupus erythematosus, unspecified; M06.9 Rheumatoid arthritis, unspecified; Z88.1 Allergy status to other antibiotic agents; Z91.013 Allergy to seafood; Z91.041 Radiographic dye allergy status; Z88.8 Allergy status to other drugs, medicaments and biological substances
CPT/HCPCS: J0690; J1885; J2001; J2250; J2704; J2765; J3010; J3490; S0020; S0028

== ENCOUNTER 2019-03-03 08:31 | Emergency (ER) | payer MEDICARE ==
[2019-03-03] MEDS ORDERED: Morphine 2 MG/ML SYRINGE ONE (09:56)
[2019-03-03] MEDS ORDERED: Morphine 4 MG/ML VIAL ONE (09:56)
[2019-03-03] MEDS ORDERED: Promethazine HCl 25 MG/ML VIAL ONE (09:57)
--- NOTE | 2019-03-03 10:03 | RAD ---
XR Hand Lt 3 View STANDARD HISTORY: Left hand swelling FINDINGS: No fracture or dislocation is identified. Arthritic changes are noted most prominent at the radiocarp al joints. No periosteal reaction is seen.
[2019-03-03 10:29] LABS: #Eosinphils 0.1 thou/uL (0.0-0.7); #Lymphocytes 1.5 thou/uL (1.20-3.40); #Monocytes 0.4 thou/uL (0.11-0.59); #Neutrophils 3.7 thou/uL (1.40-6.50); %Basophils 0.2 % (0.0-1.0); %Eosinophils 1.2 % (0.0-10.0); %Lymphocytes 26.2 % (21.0-51.0); %Monocytes 6.5 % (0.0-10.0); %Neutrophils 65.9 % (42.0-75.0); Hemoglobin 11.5 g/dL (12.0-16.0); Mean Corpuscular HGB CONC 33.5 g/dL (32.0-36.0); Mean Corpuscular Hemoglobin 26.8 pg (27.0-31.0); Mean Corpuscular Volume 79.9 fL (78.0-98.0); Platelet Count 186 thou/uL (130-400); RBC Distribution Width 14.3 % (11.5-14.5); Red Blood Cell (RBC) Count 4.29 mill/uL (4.20-5.40); White Blood Cell (WBC) Count 5.6 thou/uL (4.8-10.8)
[2019-03-03 10:35] LABS: BHCG - Serum Negative (NEGATIVE); Pregs Control Background? CLEAR/WHITE (CLR/WHITE); Pregs Control Bar Appear? YES (CONTROL BAR)
[2019-03-03 10:54] LABS: Anion Gap 10 mmol/L (10-20); BUN (Urea Nitrogen) 8 mg/dL (7.0-18.7); CRP (Inflammatory) 0.69 mg/dL (= or < 0.5); Calc. Creatinine Clearance 0 mL/min (70-130); Calcium 9.3 mg/dL (7.8-10.44); Carbon Dioxide 27 mmol/L (22-29); Chloride 104 mmol/L (98-107); Estimated GFR-MDRD 78; Glucose 95 mg/dL (70-105); Sodium 137 mmol/L (136-145)
== END 2019-03-03 13:16 | disposition home or self-care (01) ==
LOC: ERS 08:31
DX: M06.9 Rheumatoid arthritis, unspecified (principal); M32.9 Systemic lupus erythematosus, unspecified; Z79.899 Other long term (current) drug therapy
CPT/HCPCS: 80048; 84703; 85025; 85652; 86140; 96365; 96375; J2270; J2550

== ENCOUNTER 2019-05-22 18:18 | Emergency (ER) | payer MEDICARE ==
[2019-05-22] MEDS ORDERED: Nitroglycerin 0.4 MG TAB 1 EACH ONE (19:04)
[2019-05-22] MEDS ORDERED: Metoclopramide HCl 10 MG/2 ML VIAL ONE (19:16)
[2019-05-22 19:37] LABS: #Basophils 0.1 thou/uL (0.0-0.2); #Lymphocytes 1.3 thou/uL (1.20-3.40); #Monocytes 0.2 thou/uL (0.11-0.59); #Neutrophils 2.3 thou/uL (1.40-6.50); %Basophils 1.3 % (0.0-1.0); %Eosinophils 1.2 % (0.0-10.0); %Lymphocytes 32.6 % (21.0-51.0); Hemoglobin 11.8 g/dL (12.0-16.0); Mean Corpuscular Hemoglobin 25.4 pg (27.0-31.0); Mean Corpuscular Volume 79.3 fL (78.0-98.0); Mean Platelet Volume 9.4 fL (7.4-10.4); Platelet Count 211 thou/uL (130-400); RBC Distribution Width 13.4 % (11.5-14.5); Red Blood Cell (RBC) Count 4.63 mill/uL (4.20-5.40); White Blood Cell (WBC) Count 3.9 thou/uL (4.8-10.8)
--- NOTE | 2019-05-22 19:58 | RAD ---
XR Chest 1 View Portable History: Chest pain Comparison: Radiograph October 21, 2018 Findings: The lungs are clear. No pneumothorax or effusion. Cardiac silhouette and mediastinal contou rs are within normal limits. No acute osseous abnormality. Impression: No acute intrathoracic abnormality.
[2019-05-22 20:01] LABS: ALT (SGPT) Less than 7 U/L (8-55); AST (SGOT) 11 U/L (5-34); Alkaline Phosphatase 144 U/L (40-110); Anion Gap 15 mmol/L (10-20); BUN (Urea Nitrogen) 4 mg/dL (7.0-18.7); Bilirubin, Total 0.3 mg/dL (0.2-1.2); CK (CPK) 56 U/L (29-168); Calc. Creatinine Clearance 0 mL/min (70-130); Calcium 8.7 mg/dL (7.8-10.44); Carbon Dioxide 24 mmol/L (22-29); Chloride 103 mmol/L (98-107); Estimated GFR-MDRD 79; Globulin 3.3 g/dL (2.4-3.5); Glucose 96 mg/dL (70-105); Potassium 4.1 mmol/L (3.5-5.1); Protein, Total 7.3 g/dL (6.0-8.3); Sodium 138 mmol/L (136-145)
[2019-05-22] MEDS ORDERED: Morphine 4 MG/ML VIAL ONE ×2 (20:11→22:26)
[2019-05-22] MEDS ORDERED: diphenhydrAMINE 50 MG/ML VIAL ONE (20:52)
[2019-05-22] MEDS ORDERED: methylPREDNISolone Sod Succ/PF 125 MG/2 ML VIAL ONE (20:52)
[2019-05-22] MEDS ORDERED: Famotidine/PF 20 mg/2ml Vial ONE (20:52)
[2019-05-22 21:33] LABS: BHCG - Serum Negative (NEGATIVE); Pregs Control Background? CLEAR/WHITE (CLR/WHITE); Pregs Control Bar Appear? YES (CONTROL BAR)
--- NOTE | 2019-05-22 23:02 | NM ---
NM Lung Vent Perf Imaging History: Chest pain Comparison: None. Findings: Ventilation and perfusion was performed after the inhalation of 15.7 mCi of xenon and intra venous administration of 5.4 mCi technetium 99m MAA, respectively. Normal ventilation. Normal perfusion. No evidence for air trapping. No ventilation/perfusion mismatch . Impression: Normal examination. No pulmonary embolism.
[2019-05-22 23:52] LABS: Troponin I Less than 0.010 ng/mL (< 0.028)
== END 2019-05-23 00:14 | disposition home or self-care (01) ==
LOC: ERS 18:18
DX: R07.9 Chest pain, unspecified (principal); M25.512 Pain in left shoulder; L93.0 Discoid lupus erythematosus; M06.9 Rheumatoid arthritis, unspecified; Z86.711 Personal history of pulmonary embolism; F41.9 Anxiety disorder, unspecified; F32.9 Major depressive disorder, single episode, unspecified; F42.9 Obsessive-compulsive disorder, unspecified; F43.10 Post-traumatic stress disorder, unspecified; F17.290 Nicotine dependence, other tobacco product, uncomplicated
CPT/HCPCS: 71045; 78582; 80053; 82550; 84484 ×2; 84703; 85025; 85379; 93005; A9540; A9558; 36415; 96365; 96366; 96375; 96376; J1200; J2270; J2765; J2930; S0028

== ENCOUNTER 2019-06-21 12:51 | Emergency (ER) | payer MEDICARE ==
[2019-06-21] MEDS ORDERED: Morphine 4 MG/ML VIAL ONE ×2 (14:14→17:59)
[2019-06-21] MEDS ORDERED: Promethazine HCl 25 MG/ML VIAL ONE ×2 (14:14→15:25)
[2019-06-21 14:19] LABS: BHCG - Serum Negative (NEGATIVE); Pregs Control Background? CLEAR/WHITE (CLR/WHITE); Pregs Control Bar Appear? YES (CONTROL BAR)
[2019-06-21] MEDS ORDERED: Iopamidol-370 76% 500 ML 1 ML ONE (14:21)
[2019-06-21 14:32] LABS: ALT (SGPT) 7 U/L (8-55); AST (SGOT) 10 U/L (5-34); Albumin 4.1 g/dL (3.5-5.0); Alkaline Phosphatase 139 U/L (40-110); Anion Gap 15 mmol/L (10-20); BUN (Urea Nitrogen) 6 mg/dL (7.0-18.7); Bilirubin, Total 0.3 mg/dL (0.2-1.2); Calc. Creatinine Clearance 0 mL/min (70-130); Calcium 9.1 mg/dL (7.8-10.44); Carbon Dioxide 19 mmol/L (22-29); Chloride 107 mmol/L (98-107); Estimated GFR-MDRD 75; Globulin 3.8 g/dL (2.4-3.5); Glucose 97 mg/dL (70-105); Lipase 41 U/L (8-78); Potassium 3.5 mmol/L (3.5-5.1); Protein, Total 7.9 g/dL (6.0-8.3); Sodium 137 mmol/L (136-145)
[2019-06-21] MEDS ORDERED: Promethazine HCl 12.5 MG in Sodium Chloride 0.9% 100 ML IVPB SCH (14:45)
[2019-06-21 14:47] LABS: #Lymphocytes 1.6 thou/uL (1.20-3.40); #Monocytes 0.3 thou/uL (0.11-0.59); #Neutrophils 2.4 thou/uL (1.40-6.50); %Basophils 0.9 % (0.0-1.0); %Eosinophils 0.9 % (0.0-10.0); %Lymphocytes 35.7 % (21.0-51.0); %Monocytes 6.5 % (0.0-10.0); Hemoglobin 12.4 g/dL (12.0-16.0); Mean Corpuscular HGB CONC 32.8 g/dL (32.0-36.0); Mean Corpuscular Hemoglobin 26.1 pg (27.0-31.0); Mean Corpuscular Volume 79.5 fL (78.0-98.0); Mean Platelet Volume 9.2 fL (7.4-10.4); Platelet Count 205 thou/uL (130-400); RBC Distribution Width 13.8 % (11.5-14.5); Red Blood Cell (RBC) Count 4.76 mill/uL (4.20-5.40); White Blood Cell (WBC) Count 4.4 thou/uL (4.8-10.8)
[2019-06-21 15:43] LABS: Bilirubin Negative (Negative); Blood, Urine Negative (Negative); Clarity Turbid (Clear); Glucose, Urine (Dipstick) Normal (Negative); Leukocyte Negative Leu/uL (Negative); Nitrite Negative (Negative); Protein, Urine (Dipstick) Negative (Neg-Trace); Urobilinogen Normal mg/dL (Less than 2)
[2019-06-21] MEDS ORDERED: diphenhydrAMINE 50 MG/ML VIAL ONE (16:52)
[2019-06-21] MEDS ORDERED: Famotidine/PF 20 mg/2ml Vial ONE (16:52)
[2019-06-21] MEDS ORDERED: methylPREDNISolone Sod Succ/PF 125 MG/2 ML VIAL ONE (16:52)
--- NOTE | 2019-06-21 18:02 | CT ---
CT OF THE ABDOMEN AND PELVIS WITH IV CONTRAST INDICATION: Abdominal pain with history of pancreatitis COMPARISON: Prior exam dated November 03, 2016 FINDINGS: ABDOMEN: Lung bases: Clear Liver: No focal lesion. Gallbladder: Surgically absent Pancreas: Normal. Adrenal glands: Normal. Spleen: Normal. Kidneys and ureters: Normal. No hydronephrosis. Vasculature: Normal. Lymph nodes:No lymphadenopathy. Free fluid in abdomen:No free fluid is evident. PELVIS: Small and large bowel: Normal Appendix:Normal Bladder: Normal. Rectal and perirectal soft tissues:Normal. Reproductive structures: Normal. Free fluid in pelvis: No free fluid is evident. Lymphadenopathy pelvis: No lymphadenopathy is evident. Osseous structures: Stable bilateral pars defects at L5 with grade 1 anterolisthesis. There is stable left total hip arthroplasty. No acute fracture or subluxation demonstrated. Soft tissues:Normal. IMPRESSION: 1. No acute abnormality.
== END 2019-06-21 18:33 | disposition home or self-care (01) ==
LOC: ERS 12:51
DX: R10.13 Epigastric pain (principal); R11.2 Nausea with vomiting, unspecified; M06.9 Rheumatoid arthritis, unspecified; Z86.711 Personal history of pulmonary embolism; F41.9 Anxiety disorder, unspecified; F32.9 Major depressive disorder, single episode, unspecified; F42.9 Obsessive-compulsive disorder, unspecified; F43.10 Post-traumatic stress disorder, unspecified; F17.290 Nicotine dependence, other tobacco product, uncomplicated; Z79.899 Other long term (current) drug therapy
CPT/HCPCS: 36415; 74177; 80053; 81003; 83690; 84703; 85025; 96361; 96365; 96366; 96375; 96376; J1200; J2270; J2550; J2930; Q9967; S0028

== ENCOUNTER 2019-09-20 16:44 | Emergency (ER) | payer MEDICARE ==
[~2019-09-20 16:44] MED LIST changes: -Dexamethasone 20 MG/5 ML VIAL ONE; +Iopamidol-370 76% 500 ML 1 ML ONE; -Lidocaine 1% PF 5 ML VIAL ONE; -PROPOFOL 200 MG/20 ML VIAL ONE
[2019-09-20 17:52] LABS: Hemoglobin 12.9 g/dL (12.0-16.0); Mean Corpuscular Hemoglobin 25.7 pg (27.0-31.0); Mean Corpuscular Volume 80.3 fL (78.0-98.0); RBC Distribution Width 14.5 % (11.5-14.5); Red Blood Cell (RBC) Count 5.03 mill/uL (4.20-5.40); White Blood Cell (WBC) Count 4.4 thou/uL (4.8-10.8)
--- NOTE | 2019-09-20 17:52 | RAD ---
PORTABLE CHEST: 09/20/19 COMPARISON: 05/22/19 study. HISTORY: Epigastric pain. Heart size and mediastinum are within normal limits. The lungs are clear of infiltrates. No significa nt bony findings. IMPRESSION: No active intrathoracic disease. POS: [facility]
[2019-09-20] MEDS ORDERED: Morphine 4 MG/ML VIAL ONE (17:53)
[2019-09-20] MEDS ORDERED: Morphine 2 MG/ML SYRINGE ONE ×2 (17:53→18:47)
[2019-09-20] MEDS ORDERED: diphenhydrAMINE 50 MG/ML VIAL ONE (17:54)
[2019-09-20] MEDS ORDERED: methylPREDNISolone Sod Succ 40 MG VIAL ONE (17:54)
[2019-09-20] MEDS ORDERED: Promethazine HCl 25 MG/ML VIAL ONE (17:54)
[2019-09-20] MEDS ORDERED: Famotidine/PF 20 mg/2ml Vial ONE (17:54)
[2019-09-20 18:11] LABS: BHCG - Serum Negative (NEGATIVE); Pregs Control Background? CLEAR/WHITE (CLR/WHITE); Pregs Control Bar Appear? YES (CONTROL BAR)
[2019-09-20 18:12] LABS: Band 2 % (5-11); Eosinophils 2 % (0-10); Hypochromia SLIGHT = 6-15 cells (100X) (0-5/hpf); Lymphocytes 20 % (21-51); MDiff Complete? YES; Mean Platelet Volume 9.1 fL (7.4-10.4); Monocytes 6 % (0-10); Neutrophil 67 % (42-75); Platelet Count 180 thou/uL (130-400); Platelet Morphology Comment Appears Adequate; Reactive Lymphocytes 2 % (0-10)
[2019-09-20 18:17] LABS: ALT (SGPT) Less than 7 U/L (8-55); AST (SGOT) 12 U/L (5-34); Alkaline Phosphatase 132 U/L (40-110); Anion Gap 16 mmol/L (10-20); BUN (Urea Nitrogen) 9 mg/dL (7.0-18.7); Bilirubin, Total 0.3 mg/dL (0.2-1.2); Calc. Creatinine Clearance 0 mL/min (70-130); Carbon Dioxide 19 mmol/L (22-29); Chloride 107 mmol/L (98-107); Estimated GFR-MDRD 82; Globulin 3.9 g/dL (2.4-3.5); Glucose 95 mg/dL (70-105); Lipase 39 U/L (8-78); Protein, Total 7.9 g/dL (6.0-8.3); Sodium 138 mmol/L (136-145)
--- NOTE | 2019-09-20 19:54 | CT ---
CT OF ABDOMEN AND PELVIS 09/20/19 COMPARISON: 06/21/19. HISTORY: Abdominal pain with vomiting. TECHNIQUE: Axial CT imaging at 5 mm intervals from the lung bases through the pubic symphysis with intravenous c ontrast. Coronal and sagittal reformatted imaging obtained. FINDINGS: The visualized lung bases are grossly unremarkable. No free intraperitoneal air or fluid is seen. Cholecystectomy clips are noted. The hepatic parenchyma is mildly hypodense which may signify a degre e of steatosis. The spleen, pancreas, adrenal glands, and kidneys appear grossly unremarkable. The l ack of oral contrast limits assessment of the bowel. No evidence for bowel inflammatory change or obs truction. Vascular structures of abdomen/pelvis appear patent. No lymphadenopathy is seen within the abdomen o r pelvis. There is a hip arthroplasty on the left. There are L5 pars defects noted bilaterally. No wo rrisome lytic or blastic bone lesion. The appendix appears unremarkable. IMPRESSION: No acute findings. POS: [facility]
[2019-09-20 20:13] LABS: Bilirubin Negative (Negative); Blood, Urine Negative (Negative); Clarity Clear (Clear); Glucose, Urine (Dipstick) Normal (Negative); Leukocyte Negative Leu/uL (Negative); Nitrite Negative (Negative); Protein, Urine (Dipstick) Negative (Neg-Trace); Urobilinogen Normal mg/dL (Less than 2)
== END 2019-09-20 21:21 | disposition home or self-care (01) ==
LOC: ERS 16:44
DX: R10.31 Right lower quadrant pain (principal); R11.2 Nausea with vomiting, unspecified; M06.9 Rheumatoid arthritis, unspecified; F41.9 Anxiety disorder, unspecified; F32.9 Major depressive disorder, single episode, unspecified; F43.10 Post-traumatic stress disorder, unspecified; F17.290 Nicotine dependence, other tobacco product, uncomplicated; Z86.711 Personal history of pulmonary embolism; Z79.899 Other long term (current) drug therapy
CPT/HCPCS: 71045; 74177; 80053; 81003; 83605; 83690; 84703; 85025; 96365; 96375; J1200; J2270; J2550; J2920; Q9967; S0028